=== PATIENT | male | born 1980 | race Caucasian/White ===

== ENCOUNTER 2017-10-28 08:34 | Emergency (ER) | payer OTHER ==
[~2017-10-28] VITALS: Ht 182.9 cm; Wt 97.7 kg
[2017-10-28] MEDS ORDERED: LIDODERM 5% P1 PATCH TD (09:24)
[2017-10-28] MEDS ORDERED: FLEXERIL10 MG PO (09:24)
[2017-10-28] MEDS ORDERED: MOTRIN800 MG PO (09:24)
[2017-10-28 12:03] VITALS: BP 140/75
== END 2017-10-28 12:04 | disposition home or self-care (01) ==
LOC: EME 08:34
DX: S39.012A Strain of muscle, fascia and tendon of lower back, initial encounter (principal); X58.XXXA Exposure to other specified factors, initial encounter; M54.32 Sciatica, left side; F17.200 Nicotine dependence, unspecified, uncomplicated
CPT/HCPCS: 99281; 99284; J1100